=== PATIENT | male | born 1980 | race Caucasian/White ===

== ENCOUNTER 2016-10-01 18:37 | Emergency (ER) | payer SELFPAY ==
[~2016-10-01] VITALS: Ht 182.9 cm; Wt 83.0 kg
[2016-10-01 18:40] VITALS: BP 125/77; PULSE 78; RESP 17; TEMP 97.8; O2SAT 98
[2016-10-01 18:51] VITALS: BP_SYST 122; BP_SYST 125; BP_DIAS 76; BP_DIAS 77; RESP 18; O2SAT 98
--- NOTE | 2016-10-01 18:54 | PD ---
HPI Chief Complaint: Chest Pain Time Seen by Provider: 18:49 Travel History International Travel<30 days: No Contact w/Intl Traveler<30days: No Traveled to known affect area: No History of Present Illness HPI 35-year-old male is brought to the emergency department by EMS for evaluation of left anterior chest pain that began about 1 hour ago. The patient describes the pain as sharp intermittent pain aggravated with breathing and with movement. States that it began while he was sitting on his porch at home. Denies any exertional symptoms. Denies any alleviating factors. He denies shortness of breath, lightheadedness, dizziness, diaphoresis, nausea, vomiting, abdominal pain, cough or cold symptoms, fever, chills. Patient states he has never had symptoms like this before. Denies any history of heart disease or VA. Denies any family history of cardiac disease. He does smoke cigarettes. He also admits to using IV heroin, last used one week ago. States that 8 days ago he was in [place] and overdosed on heroin and his friend performed CPR on him before the paramedics came and gave him Narcan which woke him up, and states he then left AGAINST MEDICAL ADVICE from their facility. No other complaints. [facility] Past Medical History Medical History: Denies Significant Hx Social History Tobacco Use: Yes Substance Use: Yes (IV drug use, heroin) Allergies-Medications (Allergen,Severity, Reaction): Coded Allergies: Bactrim (Verified Allergy, Unknown, HIVES, 10/01/16) Banana (Verified Allergy, Unknown, HIVES, 10/01/16) Review of Systems Except as stated in HPI: all other systems reviewed are Neg Physical Exam Narrative GENERAL: Well-nourished and well-developed male patient in no acute distress who is nontoxic appearing. SKIN: Warm and dry. HEAD: Normocephalic and atraumatic. EYES: No injection, drainage, or hyphema noted. PERRLA. EOMI. ENT: No nasal drainage noted. Oropharynx is clear. NECK: Supple and the trachea is midline. CARDIOVASCULAR: Regular rate and rhythm. No murmur. RESPIRATORY: Breath sounds are equal bilaterally with no accessory muscle use, wheezing, rhonchi, or crackles. GASTROINTESTINAL: Abdomen is soft, non-tender, and nondistended. MUSCULOSKELETAL: No obvious deformities, swelling, cyanosis, or ecchymosis is present throughout the upper and lower extremities. Patient has full range of motion without any signs of neurovascular compromise. NEUROLOGICAL: Awake, alert, and oriented. Normal speech and gait. Cranial nerves are grossly intact. Data Data Last Documented VS Vital Signs Date Time Temp Pulse Resp B/P Pulse Ox O2 Delivery O2 Flow Rate FiO2 10/01/16 18:51 18 98 Room Air 10/01/16 18:51 122/77 125/76 10/01/16 18:46 82 10/01/16 18:40 97.8 Orders Electrocardiogram (10/01/16 ) Ckmb (Isoenzyme) Profile (10/01/16 18:47) Complete Blood Count With Diff (10/01/16 18:47) Comprehensive Metabolic Panel (10/01/16 18:47) Magnesium (Mg) (10/01/16 18:47) Prothrombin Time / Inr (Pt) (10/01/16 18:47) Act Partial Throm Time (Ptt) (10/01/16 18:47) Troponin I (10/01/16 18:47) Chest, Single Ap (10/01/16 18:47) Ecg Monitoring (10/01/16 18:47) Bilateral Bp Monitoring (10/01/16 18:47) Iv Access Insert/Monitor (10/01/16 18:47) Oximetry (10/01/16 18:47) Oxygen Administration (10/01/16 18:47) Aspirin Chew (Aspirin Chew) (10/01/16 19:00) Sodium Chloride 0.9% Flush (Ns Flush) (10/01/16 19:00) CKMB (10/01/16 19:00) CKMB% (10/01/16 19:00) Troponin I (10/01/16 22:00) Labs Laboratory Tests Test 10/01/16 10/01/16 19:00 22:25 White Blood Count 11.8 TH/MM3 Red Blood Count 5.06 MIL/MM3 Hemoglobin 15.3 GM/DL Hematocrit 45.3 % Mean Corpuscular Volume 89.7 FL Mean Corpuscular Hemoglobin 30.3 PG Mean Corpuscular Hemoglobin 33.8 % Concent Red Cell Distribution Width 13.4 % Platelet Count 257 TH/MM3 Mean Platelet Volume 9.1 FL Neutrophils (%) (Auto) 75.7 % Lymphocytes (%) (Auto) 16.0 % Monocytes (%) (Auto) 6.2 % Eosinophils (%) (Auto) 1.4 % Basophils (%) (Auto) 0.7 % Neutrophils # (Auto) 8.9 TH/MM3 Lymphocytes # (Auto) 1.9 TH/MM3 Monocytes # (Auto) 0.7 TH/MM3 Eosinophils # (Auto) 0.2 TH/MM3 Basophils # (Auto) 0.1 TH/MM3 CBC Comment DIFF FINAL Differential Comment Prothrombin Time 10.9 SEC Prothromb Time International 1.0 RATIO Ratio Activated Partial 28.2 SEC Thromboplast Time Sodium Level 137 MEQ/L Potassium Level 3.8 MEQ/L Chloride Level 103 MEQ/L Carbon Dioxide Level 23.9 MEQ/L Anion Gap 10 MEQ/L Blood Urea Nitrogen 15 MG/DL Creatinine 1.15 MG/DL Estimat Glomerular Filtration 73 ML/MIN Rate Random Glucose 79 MG/DL Calcium Level 9.7 MG/DL Magnesium Level 1.9 MG/DL Total Bilirubin 0.5 MG/DL Aspartate Amino Transf 18 U/L (AST/SGOT) Alanine Aminotransferase 30 U/L (ALT/SGPT) Alkaline Phosphatase 100 U/L Total Creatine Kinase 151 U/L Creatine Kinase MB 2.4 NG/ML Troponin I LESS THAN 0.02 LESS THAN 0.02 NG/ML NG/ML Total Protein 7.5 GM/DL Albumin 4.2 GM/DL [facility] Medical Decision Making Medical Screen Exam Complete: Yes Emergency Medical Condition: Yes Differential Diagnosis Pleurisy versus chest wall pain versus ACS versus musculoskeletal pain Narrative Course 35-year-old male presents to the emergency department for evaluation of left anterior chest pain. Patient is afebrile, vital signs are stable. Physical examination is unremarkable. IV access is obtained, labs have been drawn and sent. Patient is administered aspirin 325 mg orally. EKG shows normal sinus rhythm with no acute ST elevations or depressions. CBC shows a slightly elevated white blood cell count of 11.8, otherwise unremarkable. CMP is unremarkable. Troponin is less than 0.02. Coags are unremarkable. Chest x-ray is negative for any acute abnormalities. Repeat troponin at 3 hours is less than 0.02. Patient has remained stable and without complaint while here in the emergency department. 2 sets of negative cardiac enzymes and an unremarkable EKG. This is atypical chest pain. He will be discharged follow-up as an outpatient with his PCP. I discussed the case with my attending physician Dr. Grant who is aware of the patients history, physical examination findings, and treatment plan. Diagnosis Primary Impression: Atypical chest pain Referrals: Primary Care Physician Patient Instructions: Chest Wall Pain (ED), General Instructions Additional Instructions: Take medication as prescribed with food and a full glass of water. Follow-up with your Primary Care Physician. Return to the ED for any acute worsening of symptoms. Med/Other Pt SpecificInfo: Prescription(s) given Disposition: 01 DISCHARGE HOME Condition: Stable Aleida Villafana Oct 01, 2016 18:54
[2016-10-01] MEDS ORDERED: SODIUM CHLORIDE 0.9% FLUSH 5 ML FLUSH IVF PRN (19:00)
[2016-10-01] MEDS ORDERED: ASPIRIN 81 MG CHEW TAB PO ONE (19:00)
[2016-10-01 19:25] LABS: AUTOMATED NEUTROPHIL # 8.9 TH/MM3 (1.8-7.7); BASOPHIL # 0.1 TH/MM3 (0-0.2); BASOPHIL % 0.7 % (0.0-2.0); EOSINOPHIL # 0.2 TH/MM3 (0-0.4); EOSINOPHIL % 1.4 % (0.0-4.0); HEMATOCRIT 45.3 % (39.0-51.0); HEMO FLAGS DIFF FINAL; LYMPHOCYTE # 1.9 TH/MM3 (1.0-4.8); MEAN CELL VOLUME 89.7 FL (80.0-100.0); MEAN CORPUSCULAR HEMOGLOBIN 30.3 PG (27.0-34.0); MEAN CORPUSCULAR HGB CONC 33.8 % (32.0-36.0); MONO % 6.2 % (0.0-8.0); NEUT % 75.7 % (16.0-70.0); PLATELET COUNT 257 TH/MM3 (150-450); RED BLOOD COUNT 5.06 MIL/MM3 (4.50-5.90); RED CELL DISTRIBUTION WIDTH 13.4 % (11.6-17.2); WHITE BLOOD COUNT 11.8 TH/MM3 (4.0-11.0)
[2016-10-01 19:38] LABS: APTT (PATIENT) 28.2 SEC (24.3-30.1); PROTHROMBIN TIME - PATIENT 10.9 SEC (9.8-11.6)
[2016-10-01 19:52] LABS: ANION GAP 10 MEQ/L (5-15); AST (GOT) 18 U/L (15-37); BICARBONATE 23.9 MEQ/L (21.0-32.0); BLOOD UREA NITROGEN 15 MG/DL (7-18); CHLORIDE 103 MEQ/L (98-107); GLOMERULAR FILTRATION RATE 73 ML/MIN (>89); MAGNESIUM 1.9 MG/DL (1.5-2.5); POTASSIUM 3.8 MEQ/L (3.5-5.1); SODIUM (NA) 137 MEQ/L (136-145)
[2016-10-01 19:56] LABS: ALKALINE PHOSPHATASE 100 U/L (45-117); ALT (GPT) 30 U/L (12-78); CREATINE KINASE 151 U/L (39-308); TOTAL BILIRUBIN ADULT 0.5 MG/DL (0.2-1.0)
--- NOTE | 2016-10-01 20:01 | RADRPT ---
EXAM DATE/TIME: 10/01/2016 19:12 [facility] COMPARISON: No previous studies available for comparison. INDICATIONS : Chest pain. MEDICAL HISTORY : Hypertension. Smoker. SURGICAL HISTORY : None. ENCOUNTER: Initial ACUITY: 1 day PAIN SCORE: 10/10 LOCATION: Left chest FINDINGS: A single view of the chest demonstrates the lungs to be symmetrically aerated without evidence of mas s, infiltrate or effusion. The cardiomediastinal contours are unremarkable. Osseous structures are intact. CONCLUSION: No acute disease. Karlos Soriano MD on October 01, 2016 at 20:00 Board Certified Radiologist. This report was verified electronically.
[2016-10-01 20:08] LABS: CKMB 2.4 NG/ML (0.5-3.6)
[2016-10-01] MEDS ORDERED: NAPR500T PO (23:05)
[2016-10-01] MEDS ORDERED: NAPROXEN 500 MG TAB PO ONE (23:15)
--- NOTE | 2016-10-02 10:48 | EKG ---
Date Performed: 10/01/2016 Time Performed: 18:56:02 PTAGE: 35 years EKG: Sinus rhythm NORMAL ECG NO PREVIOUS TRACING DOCTOR: Carter Delaney Interpretating Date/Time 10/02/2016 10:46:19
== END 2016-10-01 23:24 | disposition home or self-care (01) ==
LOC: NEPC 18:37
DX: R07.89 Other chest pain (principal); F17.210 Nicotine dependence, cigarettes, uncomplicated; F11.10 Opioid abuse, uncomplicated
CPT/HCPCS: 71010; 80053; 82550; 82552; 83735; 84484; 85025; 85610; 85730; 93005

== ENCOUNTER 2017-01-18 16:30 | Emergency (ER) | payer SELFPAY ==
[~2017-01-18] VITALS: Ht 180.3 cm; Wt 68.0 kg
[~2017-01-18 16:30] MED LIST: NAPR500T PO
[2017-01-18 16:31] VITALS: BP 136/88; PULSE 92; RESP 20; TEMP 97.9; O2SAT 95
[2017-01-18 17:15] VITALS: BP 133/86; PULSE 84; TEMP 98.6; O2SAT 95
[2017-01-18] MEDS ORDERED: DILA2TAB2 PO (17:25)
[2017-01-18] MEDS ORDERED: ALPR.25 PO (17:26)
[2017-01-18] MEDS ORDERED: ACETAMINOPHEN 325 MG TAB PO ONE (18:15)
[2017-01-18] MEDS ORDERED: ONDANSETRON ODT 4 MG TAB PO ONE (18:15)
[2017-01-18 18:30] LABS: BASOPHIL % 0.8 % (0.0-2.0); EOSINOPHIL # 0.4 TH/MM3 (0-0.4); EOSINOPHIL % 5.9 % (0.0-4.0); HEMATOCRIT 46.3 % (39.0-51.0); HEMO FLAGS DIFF FINAL; LYMPH % 22.4 % (9.0-44.0); LYMPHOCYTE # 1.4 TH/MM3 (1.0-4.8); MEAN CELL VOLUME 89.5 FL (80.0-100.0); MEAN CORPUSCULAR HEMOGLOBIN 29.4 PG (27.0-34.0); MEAN CORPUSCULAR HGB CONC 32.9 % (32.0-36.0); NEUT % 62.9 % (16.0-70.0); PLATELET COUNT 227 TH/MM3 (150-450); RED BLOOD COUNT 5.17 MIL/MM3 (4.50-5.90); RED CELL DISTRIBUTION WIDTH 12.3 % (11.6-17.2); WHITE BLOOD COUNT 6.4 TH/MM3 (4.0-11.0)
[2017-01-18 18:56] LABS: ALT (GPT) 25 U/L (12-78); ANION GAP 6 MEQ/L (5-15); AST (GOT) 16 U/L (15-37); BICARBONATE 31.2 MEQ/L (21.0-32.0); BLOOD UREA NITROGEN 9 MG/DL (7-18); CHLORIDE 102 MEQ/L (98-107); GLOMERULAR FILTRATION RATE 80 ML/MIN (>89); POTASSIUM 4.2 MEQ/L (3.5-5.1); SODIUM (NA) 139 MEQ/L (136-145)
[2017-01-18 18:58] LABS: ALKALINE PHOSPHATASE 92 U/L (45-117); TOTAL BILIRUBIN ADULT 0.3 MG/DL (0.2-1.0)
--- NOTE | 2017-01-18 18:58 | PD ---
HPI Chief Complaint: Suicide Ideation/Attempt Time Seen by Provider: 18:51 Travel History International Travel<30 days: No Contact w/Intl Traveler<30days: No Traveled to known affect area: No History of Present Illness HPI 36-year-old male that presents to the ED for evaluation of suicidal ideation. Per patient he comes here voluntarily for evaluation of the suicidal ideation. Patient has a history of substance abuse including heroine IV multiple times a day. Per patient he last injected today at noon. Per patient he went to [facility] to get help with a told to come here. Per patient he believes that he had a stroke about 2 months ago because ever since she's been having right foot drop and numbness. Per patient this is been ongoing for 2 months and has not seen anybody for this. He takes no medications prescribed to him. Per patient he does abuse Dilaudid as well. He denies any fevers chills or sweats. No back pain. Per patient the numbness is only to the medial aspect of the right foot. Patient on my examination is able actually to move the foot and he is able to move the toes as well. No obvious sign of deformity noted. Denies any chest pain or shortness of breath. States that he has some mild headache as well as feeling nauseous. Headache is 5/10. Has not taken anything for this. No abdominal pain. Patient denies any homicidal ideation. Per patient he has a plan to overdose. 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 Bactrim (Verified Allergy, Unknown, HIVES, 01/18/17) Per pt. Banana (Verified Allergy, Unknown, HIVES, 01/18/17) Per pt. Bees (Verified Allergy, Unknown, 01/18/17) Per pt. Reported Meds & Prescriptions Reported Meds & Active Scripts Active Reported Xanax (Alprazolam) 0.25 Mg Tab 0.25 Mg PO Q4H PRN Dilaudid (Hydromorphone HCl) 2 Mg Tab 2 Mg PO Q4H PRN Review of Systems Except as stated in HPI: all other systems reviewed are Neg Physical Exam Narrative GENERAL: SKIN: Warm and dry. HEAD: Atraumatic. Normocephalic. EYES: Pupils equal and round 4 mm reactive to light and accommodation. No scleral icterus. No injection or drainage. ENT: No nasal bleeding or discharge. Mucous membranes pink and moist. Tongue is midline. No blood deviation. NECK: Trachea midline. No JVD. CARDIOVASCULAR: Regular rate and rhythm. No murmurs, S3, S4. RESPIRATORY: No accessory muscle use. Clear to auscultation. Breath sounds equal bilaterally. GASTROINTESTINAL: Abdomen soft, non-tender, nondistended. Hepatic and splenic margins not palpable. MUSCULOSKELETAL: Extremities without clubbing, cyanosis, or edema. No obvious deformities. Full range of motion of the upper and lower extremities bilaterally. 2+ pulses bilaterally. Full ROM of the right lower extremity. Subjective sensation deficit noted. He is able to flex and extend the right foot with no obvious deformity. NEUROLOGICAL: Awake and alert. No obvious cranial nerve deficits. Motor grossly within normal limits. Five out of 5 muscle strength in the arms and legs. Normal speech. PSYCHIATRIC: Appropriate mood and affect; insight and judgment normal. Data Data Last Documented VS Vital Signs Date Time Temp Pulse Resp B/P Pulse Ox O2 Delivery O2 Flow Rate FiO2 01/18/17 17:15 98.6 84 133/86 95 01/18/17 16:31 20 Room Air Orders Complete Blood Count With Diff (01/18/17 17:28) Comprehensive Metabolic Panel (01/18/17 17:28) Psych Screen (01/18/17 17:28) Drug Screen, Random Urine (01/18/17 17:28) Alcohol (Ethanol) (01/18/17 17:28) Salicylates (Aspirin) (01/18/17 17:28) Tylenol (Acetaminophen) (01/18/17 17:28) Ct Brain W/O Iv Contrast(Rout) (01/18/17 18:15) Ct Lumb Spine W/O Contrast (01/18/17 18:15) Acetaminophen (Tylenol) (01/18/17 18:15) Ondansetron Odt (Zofran Odt) (01/18/17 18:15) Diet Regular Basic (01/18/17 Dinner) Labs Laboratory Tests Test 01/18/17 18:00 White Blood Count 6.4 TH/MM3 Red Blood Count 5.17 MIL/MM3 Hemoglobin 15.2 GM/DL Hematocrit 46.3 % Mean Corpuscular Volume 89.5 FL Mean Corpuscular Hemoglobin 29.4 PG Mean Corpuscular Hemoglobin 32.9 % Concent Red Cell Distribution Width 12.3 % Platelet Count 227 TH/MM3 Mean Platelet Volume 9.3 FL Neutrophils (%) (Auto) 62.9 % Lymphocytes (%) (Auto) 22.4 % Monocytes (%) (Auto) 8.0 % Eosinophils (%) (Auto) 5.9 % Basophils (%) (Auto) 0.8 % Neutrophils # (Auto) 4.0 TH/MM3 Lymphocytes # (Auto) 1.4 TH/MM3 Monocytes # (Auto) 0.5 TH/MM3 Eosinophils # (Auto) 0.4 TH/MM3 Basophils # (Auto) 0.0 TH/MM3 CBC Comment DIFF FINAL Differential Comment Sodium Level 139 MEQ/L Potassium Level 4.2 MEQ/L Chloride Level 102 MEQ/L Carbon Dioxide Level 31.2 MEQ/L Anion Gap 6 MEQ/L Blood Urea Nitrogen 9 MG/DL Creatinine 1.05 MG/DL Estimat Glomerular Filtration 80 ML/MIN Rate Random Glucose 89 MG/DL Calcium Level 9.5 MG/DL Total Bilirubin 0.3 MG/DL Aspartate Amino Transf 16 U/L (AST/SGOT) Alanine Aminotransferase 25 U/L (ALT/SGPT) Alkaline Phosphatase 92 U/L Total Protein 7.7 GM/DL Albumin 4.3 GM/DL Salicylates Level 2.1 MG/DL Acetaminophen Level LESS THAN 2.0 MCG/ML Ethyl Alcohol Level 4 MG/DL MDM Medical Decision Making Medical Screen Exam Complete: Yes Emergency Medical Condition: Yes Medical Record Reviewed: Yes Interpretation(s) CBC & BMP Diagram 01/18/17 18:00 tox negative Last Impressions Head CT 01/18/17 5899 Signed Impressions: Service Date/Time: Wednesday, January 18, 2017 18:58 - CONCLUSION: Negative noncontrast head CT. Dakotah Tan MD CT lumbar spine negative Differential Diagnosis Depression versus suicidal ideation versus anxiety versus adjustment disorder versus mood disorder versus bipolar disorder versus schizophrenia versus paranoid disorder versus psychosis versus substance abuse versus alcohol abuse versus alcohol induced psychosis versus homicidality addition versus cutting versus personality disorder versus radiculopathy versus acute on chronic neuropathy versus headache Narrative Course 36-year-old male that presents to the ED for evaluation of psych. Patient was properly examined and was found to have signs and symptoms consistent appears to be psychiatric illness. No obvious sign of acute medical distress. Patient does complain of this right foot drop that he's had for about 2 months and has never been worked up for it. He has no other symptom. On my examination she does not really appear to be any neurological deficits. His right foot does appear to be weaker than the left but otherwise unremarkable with some subjective sensation deficits. He is able to move the toes and foot itself. He is given note to put weight on it but with a slight limp. At this time I recommend labs and imaging to rule out any sign of acute disease. Patient was given Tylenol and Zofran. Labs and imaging showed no sign of acute disease. No sign of ischemic stroke or any old ischemic stroke. At this time I recommend outpatient follow-up for the foot neuropathy. Case was discussed in my attending Dr. Kaba who agrees with this plan. Patient will be medically clear. Okay to be seen by psych. Mental health screening was discussed with the patient. Diagnosis Primary Impression: Suicidal ideation Additional Impression: Polysubstance abuse Kiran Garces Jan 18, 2017 18:58
[2017-01-18 19:03] LABS: ACETAMINOPHEN LESS THAN 2.0 MCG/ML (10.0-30.0)
--- NOTE | 2017-01-18 19:11 | RADRPT ---
EXAM DATE/TIME: 01/18/2017 18:58 [facility] COMPARISON: No previous studies available for comparison. INDICATIONS : Weakness with Altered mental status. RADIATION DOSE: 56.49 CTDIvol (mGy) MEDICAL HISTORY : Hepatitis C. SURGICAL HISTORY : None. ENCOUNTER: Initial ACUITY: 3 days PAIN SCALE: 0/10 LOCATION: cranial TECHNIQUE: Multiple contiguous axial images were obtained of the head. Using automated exposure control and adj ustment of the mA and/or kV according to patient size, radiation dose was kept as low as reasonably a chievable to obtain optimal diagnostic quality images. FINDINGS: CEREBRUM: The ventricles are normal for age. No evidence of midline shift, mass lesion, hemorrhage or acute in farction. No extra-axial fluid collections are seen. POSTERIOR FOSSA: The cerebellum and brainstem are intact. The 4th ventricle is midline. The cerebellopontine angle i s unremarkable. EXTRACRANIAL: The visualized portion of the orbits is intact. SKULL: The calvaria is intact. No evidence of skull fracture. CONCLUSION: Negative noncontrast head CT. Dakotah Tan MD on January 18, 2017 at 19:08 Board Certified Radiologist. This report was verified electronically.
--- NOTE | 2017-01-18 19:21 | RADRPT ---
EXAM DATE/TIME: 01/18/2017 18:59 [facility] COMPARISON: No previous studies available for comparison. INDICATIONS : Right leg weakness. RADIATION DOSE: 35.86 CTDIvol (mGy) MEDICAL HISTORY : None SURGICAL HISTORY : None. ENCOUNTER: Initial ACUITY: 3 days PAIN SCALE: 5/10 LOCATION: Right leg TECHNIQUE: Volumetric scanning of the lumbar spine was performed. Multiplanar reconstructions in the sagittal, coronal and oblique axial planes were performed. Using automated exposure control and adjustment of the mA and/or kV according to patient size, radiation dose was kept as low as reasonably achievable t o obtain optimal diagnostic quality images. FINDINGS: VERTEBRAE: Normal vertebral body height. Chronic focal limbus defect seen anterior/superior corner of L5. ALIGNMENT: No evidence of subluxation. T12-L1: The thecal sac has a normal diameter. No evidence of disc bulge or protrusion. The neural foramina are patent bilaterally. L1-L2: The thecal sac has a normal diameter. No evidence of disc bulge or protrusion. The neural foramina are patent bilaterally. L2-L3: The thecal sac has a normal diameter. No evidence of disc bulge or protrusion. The neural foramina are patent bilaterally. L3-L4: Mild bulging of the annulus. No foraminal or spinal stenosis. L4-L5: Mild bulging of the disc annulus. No foraminal or spinal stenosis. L5-S1: Mild bulging of the disc annulus. No foraminal or spinal stenosis. CONCLUSION: Minimal degenerative changes of the mid and lower lumbar spine as above. No fracture, subluxation or stenosis. Chronic limbus changes of L5 incidentally noted. Dakotah Tan MD on January 18, 2017 at 19:16 Board Certified Radiologist. This report was verified electronically.
[2017-01-18 23:08] VITALS: BP 119/64; PULSE 62; RESP 18; O2SAT 94
[2017-01-19 02:31] VITALS: BP 113/62; PULSE 59; RESP 18; O2SAT 98
[2017-01-19 06:54] VITALS: BP 135/75; PULSE 68; RESP 18; O2SAT 97
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
[2017-01-19 09:27] LABS: AMPHETAMINE, URINE NEG (NEG); BARBITURATES, URINE NEG (NEG); COCAINE, URINE POS (NEG)
[2017-01-19 10:01] VITALS: BP 135/75
== END 2017-01-19 10:00 | disposition home or self-care (01) ==
LOC: NEPJ 16:30
DX: R45.851 Suicidal ideations (principal); F19.10 Other psychoactive substance abuse, uncomplicated; F11.20 Opioid dependence, uncomplicated; B19.20 Unspecified viral hepatitis C without hepatic coma; F17.210 Nicotine dependence, cigarettes, uncomplicated; Z76.5 Malingerer [conscious simulation]; Z59.0 Homelessness
CPT/HCPCS: 70450; 72131; 80053; 80307; 85025; 99284

== ENCOUNTER 2017-11-01 14:53 | Emergency (ER) | payer SELFPAY ==
[~2017-11-01] VITALS: Ht 172.7 cm; Wt 70.0 kg
[~2017-11-01 14:53] MED LIST changes: +ALPR.25 PO; +DILA2TAB4 PO; -NAPR500T PO
[2017-11-01 15:09] VITALS: BP 112/76; PULSE 72; RESP 20; TEMP 98.5; O2SAT 97
[2017-11-01] MEDS ORDERED: SODIUM CHLORIDE 0.9% FLUSH 10 ML FLUSH IVF PRN (15:30)
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
[2017-11-01 15:45] VITALS: BP 121/72; O2SAT 97
[2017-11-01 16:02] LABS: AUTOMATED NEUTROPHIL # 4.2 TH/MM3 (1.8-7.7); BASOPHIL % 0.7 % (0.0-2.0); EOSINOPHIL # 0.2 TH/MM3 (0-0.4); EOSINOPHIL % 3.6 % (0.0-4.0); HEMATOCRIT 40.4 % (39.0-51.0); HEMOGLOBIN 13.9 GM/DL (13.0-17.0); LYMPH % 21.1 % (9.0-44.0); LYMPHOCYTE # 1.4 TH/MM3 (1.0-4.8); MEAN CELL VOLUME 88.9 FL (80.0-100.0); MEAN CORPUSCULAR HEMOGLOBIN 30.6 PG (27.0-34.0); MEAN CORPUSCULAR HGB CONC 34.4 % (32.0-36.0); MEAN PLATELET VOLUME 8.1 FL (7.0-11.0); MONO % 10.2 % (0.0-8.0); MONOCYTE # 0.7 TH/MM3 (0-0.9); NEUT % 64.4 % (16.0-70.0); PLATELET COUNT 297 TH/MM3 (150-450); RED BLOOD COUNT 4.54 MIL/MM3 (4.50-5.90); RED CELL DISTRIBUTION WIDTH 13.3 % (11.6-17.2); WHITE BLOOD COUNT 6.5 TH/MM3 (4.0-11.0)
--- NOTE | 2017-11-01 16:30 | RADRPT ---
EXAM DATE/TIME: 11/01/2017 16:09 [facility] COMPARISON: No previous studies available for comparison. INDICATIONS : Left sided rib pain. Patient states possible rib fracture a week ago. MEDICAL HISTORY : Hypertension. Smoker. SURGICAL HISTORY : None. ENCOUNTER: Initial ACUITY: 1 week PAIN SCORE: 10/10 LOCATION: Bilateral chest FINDINGS: There are nondisplaced fractures of the left sixth erate ribs. There is no evidence of pneumothorax. Lungs are clear. Heart size normal. CONCLUSION: Left-sided rib fractures. Philipp Stallings MD on November 01, 2017 at 16:25 Board Certified Radiologist. This report was verified electronically.
[2017-11-01 16:36] LABS: ALBUMIN 3.5 GM/DL (3.4-5.0); AST (GOT) 13 U/L (15-37); BICARBONATE 26.7 MEQ/L (21.0-32.0); BLOOD UREA NITROGEN 13 MG/DL (7-18); CALCIUM 8.7 MG/DL (8.5-10.1); CHLORIDE 110 MEQ/L (98-107); CREATININE 1.01 MG/DL (0.60-1.30); GLOMERULAR FILTRATION RATE 84 ML/MIN (>89); GLUCOSE,RANDOM 100 MG/DL (74-106); SODIUM (NA) 142 MEQ/L (136-145)
[2017-11-01 16:39] LABS: ACETAMINOPHEN LESS THAN 2.0 MCG/ML (10.0-30.0); ALKALINE PHOSPHATASE 112 U/L (45-117); ALT (GPT) 17 U/L (12-78); TOTAL BILIRUBIN ADULT 0.1 MG/DL (0.2-1.0); TOTAL PROTEIN 6.8 GM/DL (6.4-8.2)
== END 2017-11-01 20:12 ==
LOC: NEPD 14:53 → NEDAMB 20:12
DX: S22.42XA Multiple fractures of ribs, left side, initial encounter for closed fracture (principal); F14.10 Cocaine abuse, uncomplicated; F12.10 Cannabis abuse, uncomplicated; F17.200 Nicotine dependence, unspecified, uncomplicated; Z86.73 Personal history of transient ischemic attack (TIA), and cerebral infarction without residual deficits; Z86.19 Personal history of other infectious and parasitic diseases; Z79.899 Other long term (current) drug therapy; X58.XXXA Exposure to other specified factors, initial encounter
CPT/HCPCS: 71045; 80053; 80307; 85025; 99284

== ENCOUNTER 2017-11-19 16:05 | Emergency (ER) | payer OTHER ==
[~2017-11-19] VITALS: Ht 180.3 cm; Wt 76.0 kg
[2017-11-19 16:13] VITALS: BP 132/72; PULSE 89; RESP 20; TEMP 97.3; O2SAT 98
[2017-11-19] MEDS ORDERED: GABA300C5 PO (16:17)
[2017-11-19] MEDS ORDERED: ABIL30TA5 PO (16:17)
[2017-11-19] MEDS ORDERED: ACETAMINOPHEN/HYDROcodone 325 MG/5 MG TAB PO ONE (16:30)
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
[2017-11-19] MEDS ORDERED: IBUPROFEN 800 MG TAB PO ONE (16:45)
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
[2017-11-19] MEDS ORDERED: ROBA500T PO (18:34)
[2017-11-19] MEDS ORDERED: IBUP1TAB7 PO (18:34)
== END 2017-11-19 18:53 | disposition home or self-care (01) ==
LOC: NEPD 16:05
DX: S29.012A Strain of muscle and tendon of back wall of thorax, initial encounter (principal); S16.1XXA Strain of muscle, fascia and tendon at neck level, initial encounter; V89.2XXA Person injured in unspecified motor-vehicle accident, traffic, initial encounter
CPT/HCPCS: 70450; 71045; 72125; 72128; 99284